=== PATIENT | male | born 1940 | race Caucasian/White ===

== ENCOUNTER 2018-05-07 09:23 | Inpatient (IN) ==
[2018-05-07 09:58] LABS: Basophils % 0.5 % (0.0-0.8); Eosinophils # 0.1 10*3/uL (0.0-0.87); Hematocrit 36.2 VOL% (42.0-52.0); Hemoglobin 11.8 GM/DL (14.0-18.0); Immature Granulocytes % 0.5 %; Immature Granulocytes Absolute 0.03 #; Lymphocytes # 1.5 10*3/uL (1.4-4.0); Lymphocytes % 24.9 % (21.2-54.2); Mean Corpuscular HGB Conc 32.6 GM/DL (32-36); Mean Corpuscular Hemoglobin 32 PG (27-34); Mean Corpuscular Volume 96.8 FL (87-102); Mean Platelet Volume 10.1 FL (9.6-12.0); Monocytes # 0.6 10*3/uL (0.11-0.8); Monocytes % 9.8 % (1.7-12.7); Neutrophils # 3.7 10*3/uL (1.4-7.4); Neutrophils % 63.3 % (38.7-73.9); Platelet Count 193 T/CUMM (130-400); Red Blood Count 3.74 MC/CUMM (3.8-5.5); Red Cell Distribution Width 13.5 % (9.3-17.3); White Blood Count 5.9 T/CUMM (4-12)
[2018-05-07 10:19] LABS: Alanine Aminotransferase 33 U/L (16-61); Albumin 3.3 G/DL (3.4-5.0); Alkaline Phosphatase 93 U/L (45-117); Aspartate Amino Transferase 23 U/L (0-37); Bilirubin,Total < 0.39 MG/DL (0.2-1.0); Blood Urea Nitrogen 17 MG/DL (7-18); Calcium 8.1 MG/DL (8.5-10.1); Glucose 122 MG/DL (74-106); Osmolality,Calculated 279.5 MOS/KG (273-304); Potassium 3.5 MMOL/L (3.5-5.1); Sodium 139 MMOL/L (136-145); Total Protein 6.6 G/DL (6.4-8.3)
[2018-05-07] MEDS ORDERED: ALBUTEROL/IPRATROPIUM 3 ML NEB RESP TX PRN ×2 (12:36→19:39)
[2018-05-07] MEDS ORDERED: DEXTROSE 50% 25 GM/50 ML VIAL IV PRN (13:01)
[2018-05-07] MEDS ORDERED: GLUCAGON 1 MG VIAL IM PRN (13:01)
[2018-05-07] MEDS ORDERED: ACETAMINOPHEN 325 MG TABLET PO PRN (13:11)
[2018-05-07] MEDS ORDERED: ONDANSETRON 4 MG/2 ML VIAL IV PRN (13:11)
[2018-05-07] MEDS ORDERED: tiZANidine 4 MG TABLET PO PRN (13:11)
[2018-05-07 13:40] LABS: ABG Base Excess 5.2 MMOL/L (-2.5-2.5); ABG HCO3 30.5 MMOL/L (20-26); ABG Oxygen Saturation 94.9 % (95-100); ABG PCO2 47.7 MM HG (35-48); ABG PH 7.423 (7.35-7.45); ABG PO2 82.8 MM HG (80-95); ABG TCO2 31.9 MMOL/L (23-27)
[2018-05-07 14:41] LABS: Troponin I < 0.015 NG/ML (0.00-0.045)
[2018-05-07] MEDS: INSULIN REGULAR 100 UNIT/ML SUBCUT SCH ×2 (15:31→22:42)
[2018-05-07] MEDS: FUROSEMIDE 40 MG/4 ML VIAL IV SCH (17:07)
[2018-05-07] MEDS: PIPERACILLIN/TAZOBACTAM 3,375 MG in SODIUM CHLORIDE 0.9% 100 ML IV SCH (18:15)
[2018-05-07] MEDS: ALBUTEROL/IPRATROPIUM 3 ML NEB RESP TX SCH (19:58)
[2018-05-07] MEDS: DOCUSATE SODIUM 100 MG CAPSULE PO SCH (21:32)
[2018-05-07] MEDS: VALSARTAN/HCTZ 80-12.5 MG TABLET PO SCH (21:32)
[2018-05-07] MEDS: TAMSULOSIN 0.4 MG CAPSULE PO SCH (21:32)
[2018-05-07] MEDS: APIXABAN 5 MG TABLET PO SCH (21:32)
[2018-05-07] MEDS: MONTELUKAST 10 MG TABLET PO SCH (21:32)
[2018-05-07] MEDS: ATORVASTATIN 20 MG TABLET PO SCH (21:32)
[2018-05-07] MEDS: traZODone 50 MG TABLET PO SCH (21:32)
[2018-05-07] MEDS: ASPIRIN EC 81 MG TABLET PO SCH (21:32)
[2018-05-07] MEDS: CITALOPRAM 20 MG TABLET PO SCH (21:32)
[2018-05-07] MEDS: ALLOPURINOL 300 MG TABLET PO SCH (21:32)
[2018-05-07] MEDS: GABAPENTIN 100 MG CAPSULE PO SCH (21:32)
[2018-05-07] MEDS: AZITHROMYCIN INJ 500 MG in SODIUM CHLORIDE 0.9% 250 ML IV SCH (22:39)
[2018-05-08] MEDS: PIPERACILLIN/TAZOBACTAM 3,375 MG in SODIUM CHLORIDE 0.9% 100 ML IV SCH ×3 (04:05→16:31)
[2018-05-08 04:57] LABS: Basophils % 0.6 % (0.0-0.8); Eosinophils # 0.1 10*3/uL (0.0-0.87); Eosinophils % 2.1 % (0.00-10.9); Hematocrit 36.9 VOL% (42.0-52.0); Hemoglobin 11.8 GM/DL (14.0-18.0); Immature Granulocytes % 0.2 %; Immature Granulocytes Absolute 0.01 #; Lymphocytes # 1.2 10*3/uL (1.4-4.0); Lymphocytes % 22.7 % (21.2-54.2); Mean Corpuscular Hemoglobin 31 PG (27-34); Mean Corpuscular Volume 96.6 FL (87-102); Mean Platelet Volume 10.2 FL (9.6-12.0); Monocytes # 0.6 10*3/uL (0.11-0.8); Monocytes % 11.2 % (1.7-12.7); Neutrophils # 3.4 10*3/uL (1.4-7.4); Neutrophils % 63.2 % (38.7-73.9); Platelet Count 202 T/CUMM (130-400); Red Blood Count 3.82 MC/CUMM (3.8-5.5); Red Cell Distribution Width 13.7 % (9.3-17.3); White Blood Count 5.3 T/CUMM (4-12)
[2018-05-08 05:07] LABS: PT Patient Result 10.2 SECS; Partial Thromboplastin Time 28.1 SECS (0-40)
[2018-05-08 05:14] LABS: Apearance,Urine CLEAR (Clear); Bacteria,Urine Occasional /HPF (Few); Bilirubin,Urine Negative (Negative); Blood, Urine Negative (Negative); Glucose,Urine (UA) Negative (Negative); Ketones,Urine Negative (Negative); Nitrite,Urine Negative (Negative); Protein,Urine Negative; RBC,Urine 1 /HPF (0-4); Urine Color Straw (Yellow); Urine Specific Gravity 1.009 (1.001-1.035); Urine Urobilinogen < 2.0 EU/DL (0.2-1.0); WBC,Urine <1 /HPF (0-6)
[2018-05-08 05:29] LABS: Albumin 3.3 G/DL (3.4-5.0); Bilirubin,Total 0.7 MG/DL (0.2-1.0); Calcium 8.4 MG/DL (8.5-10.1); Osmolality,Calculated 280.4 MOS/KG (273-304); Potassium 3.6 MMOL/L (3.5-5.1); Risk Ratio 2.6; Total Protein 6.5 G/DL (6.4-8.3); Troponin I < 0.015 NG/ML (0.00-0.045)
[2018-05-08] MEDS: ALBUTEROL/IPRATROPIUM 3 ML NEB RESP TX SCH ×4 (07:15→19:42)
[2018-05-08] MEDS ORDERED: LIDOCAINE 2% VISCOUS 100 ML BOTTLE SWISH/SPIT ONE ×2 (08:00→09:00)
[2018-05-08] MEDS ORDERED: LIDOCAINE 1% 20 ML VIAL MISC INJ ONE ×2 (08:00→09:00)
[2018-05-08] MEDS ORDERED: LIDOCAINE 2% 20 ML VIAL RESP TX ONE ×2 (08:00→09:00)
[2018-05-08] MEDS ORDERED: diphenhydrAMINE CAP 50 MG CAPSULE PO ONE (08:00)
[2018-05-08] MEDS: INSULIN REGULAR 100 UNIT/ML SUBCUT SCH ×4 (08:09→21:39)
[2018-05-08] MEDS ORDERED: BENZONATATE 100 MG CAPSULE PO ONE (08:30)
[2018-05-08] MEDS ORDERED: diphenhydrAMINE 50 MG/1 ML VIAL IM ONE (08:30)
[2018-05-08] MEDS ORDERED: MEPERIDINE 50 MG/1 ML VIAL IM ONE (08:30)
[2018-05-08] MEDS: FUROSEMIDE 40 MG/4 ML VIAL IV SCH ×2 (09:39→16:30)
[2018-05-08] MEDS: MONTELUKAST 10 MG TABLET PO SCH ×2 (10:49→21:34)
[2018-05-08] MEDS: APIXABAN 5 MG TABLET PO SCH ×2 (10:49→21:35)
[2018-05-08] MEDS: PANTOPRAZOLE 40 MG TABLET PO SCH (10:49)
[2018-05-08] MEDS: POLYETHYLENE GLYCOL POWDER 17 GM PACK PO SCH (10:49)
[2018-05-08] MEDS: ATORVASTATIN 20 MG TABLET PO SCH (21:34)
[2018-05-08] MEDS: DOCUSATE SODIUM 100 MG CAPSULE PO SCH (21:34)
[2018-05-08] MEDS: AZITHROMYCIN INJ 500 MG in SODIUM CHLORIDE 0.9% 250 ML IV SCH (21:34)
[2018-05-08] MEDS: VALSARTAN/HCTZ 80-12.5 MG TABLET PO SCH (21:34)
[2018-05-08] MEDS: ALLOPURINOL 300 MG TABLET PO SCH (21:35)
[2018-05-08] MEDS: GABAPENTIN 100 MG CAPSULE PO SCH (21:35)
[2018-05-08] MEDS: ASPIRIN EC 81 MG TABLET PO SCH (21:35)
[2018-05-08] MEDS: traZODone 50 MG TABLET PO SCH (21:35)
[2018-05-08] MEDS: CITALOPRAM 20 MG TABLET PO SCH (21:36)
[2018-05-08] MEDS: TAMSULOSIN 0.4 MG CAPSULE PO SCH (21:36)
[2018-05-09] MEDS: PIPERACILLIN/TAZOBACTAM 3,375 MG in SODIUM CHLORIDE 0.9% 100 ML IV SCH ×2 (00:29→08:21)
[2018-05-09 05:23] LABS: Basophils % 0.3 % (0.0-0.8); Eosinophils # 0.1 10*3/uL (0.0-0.87); Eosinophils % 1.8 % (0.00-10.9); Hematocrit 37.8 VOL% (42.0-52.0); Hemoglobin 12.1 GM/DL (14.0-18.0); Immature Granulocytes % 0.5 %; Immature Granulocytes Absolute 0.03 #; Lymphocytes # 1.5 10*3/uL (1.4-4.0); Mean Corpuscular Hemoglobin 31 PG (27-34); Mean Corpuscular Volume 96.2 FL (87-102); Mean Platelet Volume 10.3 FL (9.6-12.0); Monocytes # 0.7 10*3/uL (0.11-0.8); Monocytes % 11.4 % (1.7-12.7); Neutrophils # 3.8 10*3/uL (1.4-7.4); Platelet Count 206 T/CUMM (130-400); Red Blood Count 3.93 MC/CUMM (3.8-5.5); White Blood Count 6.2 T/CUMM (4-12)
[2018-05-09 05:37] LABS: Calcium 8.1 MG/DL (8.5-10.1); Osmolality,Calculated 281.4 MOS/KG (273-304); Potassium 3.4 MMOL/L (3.5-5.1)
[2018-05-09] MEDS: ALBUTEROL/IPRATROPIUM 3 ML NEB RESP TX SCH (07:22)
[2018-05-09 07:29] VITALS: BP 113/69
[2018-05-09] MEDS: INSULIN REGULAR 100 UNIT/ML SUBCUT SCH (07:33)
[2018-05-09] MEDS: PANTOPRAZOLE 40 MG TABLET PO SCH (08:22)
[2018-05-09] MEDS: POLYETHYLENE GLYCOL POWDER 17 GM PACK PO SCH (08:22)
[2018-05-09] MEDS: MONTELUKAST 10 MG TABLET PO SCH (08:22)
[2018-05-09] MEDS: FUROSEMIDE 40 MG/4 ML VIAL IV SCH (08:22)
[2018-05-09] MEDS: APIXABAN 5 MG TABLET PO SCH (08:22)
[2018-05-09] MEDS ORDERED: MAGNESIUM HYDROXIDE SUSP 30 ML UDCUP PO PRN (09:10)
== END 2018-05-09 10:32 | disposition home or self-care (01) | DRG 165 ==
LOC: N.ED 09:23 → N.EDINP 12:07 → SUATTDRO 12:07 → N.2E 12:46
PROVIDERS: ADMIT Internal Medicine; ATTEND Family Medicine